=== PATIENT | female | born 1995 | race Caucasian/White ===

== ENCOUNTER → 2017-05-14 | Outpatient (CLI) | payer OTHER ==
[~2017-05-14] MED LIST: GADAVIST IV PRN
--- NOTE | 2017-05-14 22:44 | DIAGNOSTIC IMAGING REPORT ---
PELVIS MRI WITH AND WITHOUT INTRAVENOUS CONTRAST HISTORY: Recurrent pelvic pain. UTERINE ABNORMALITY TECHNIQUE: Multiplanar multisequence MRI of the pelvis are performed both before and after the intravenous administration of contrast. COMPARISON STUDY: None. FINDINGS: The uterus measures approximate 6.1 x 2.4 x 3.6 cm. Endometrial stripe measures 4 mm in thickness. No cervical masses identified. The bladder is distended. There are few small follicles/cysts within the bilateral ovaries with the largest on the right measuring 1 cm. The right ovary measures 2.7 x 1.8 cm. The left ovary measures 2.5 x 1.7 cm. No significant pelvic free fluid. No pelvic lymphadenopathy. There is a 5 mm cyst within the right vaginal wall. The uterus enhances normally. No uterine masses. No adnexal masses. There is a hypointense structure within the vagina consistent with the patient's history of a tampon. However, this has a Y-shaped appearance consistent with 2 separate tampons. This is best seen on coronal T2 sequence images 18 through 20. The right-sided hypointense tubular structure/tampon is located within the upper vagina and measures measures 4.8 x 2.1 cm and the left-sided tubular hypointense structure/tampon measures 4.8 x 1.7 cm. IMPRESSION: 1. Normal uterus and ovaries. 2. There is a hypointense structure within the vagina consistent with the patient's history of a tampon. However, this has a Y-shaped appearance consistent with 2 separate tampons. Clinical correlation recommended to ensure that the patient has recently inserted two separate tampons. However, if the patient has only recently inserted a single tampon then the second tampon requires removal due to the fact that a long standing tampon could result in a toxic shock syndrome. 3. A 5 mm cyst within the right vaginal wall. This is indeterminate but favors a small inclusion cyst. A tiny intramural abscess could also have a similar appearance in the appropriate clinical setting. 3. These findings were discussed with the patient's head of english, Erum King, at 11:00 PM on 05/14/2017. Electronically signed by: Jey Saxena M.D. 05/14/2017 11:21 PM Dictated Date/Time: 05/14/2017 10:29 PM
== END | disposition home or self-care (01) ==
LOC: C.MRI 20:27
PROVIDERS: ATTEND Physician Assistant Medical
DX: Q51.9 Congenital malformation of uterus and cervix, unspecified (principal); R10.2 Pelvic and perineal pain; N89.8 Other specified noninflammatory disorders of vagina